=== PATIENT | male | born 1950 | race Caucasian/White ===

== ENCOUNTER → 2017-04-01 | Outpatient (REF) | payer OTHER | LOC: M LAB REF 09:04 | DX: C44.602 Unspecified malignant neoplasm of skin of right upper limb, including shoulder (principal) ==

== ENCOUNTER → 2018-12-19 | Outpatient (REF) | LOC: M LAB REF 14:28 | DX: C44.612 Basal cell carcinoma of skin of right upper limb, including shoulder (principal); C44.619 Basal cell carcinoma of skin of left upper limb, including shoulder ==

== ENCOUNTER → 2019-01-26 | Outpatient (REF) | payer OTHER | LOC: M LABCFH 09:57 | DX: D22.39 Melanocytic nevi of other parts of face (principal) ==

== ENCOUNTER → 2019-02-21 | Outpatient (REF) | LOC: M LABCFH 16:26 | DX: Z00.00 Encounter for general adult medical examination without abnormal findings (principal) ==

== ENCOUNTER → 2019-03-08 | Outpatient (REF) | payer OTHER | LOC: M LAB REF 14:04 | DX: C44.612 Basal cell carcinoma of skin of right upper limb, including shoulder (principal) ==

== ENCOUNTER → 2020-02-11 | Outpatient (REF) | payer MEDICARE | LOC: M LAB REF 08:16 | PROVIDERS: ATTEND Nurse Practitioner | DX: L60.3 Nail dystrophy (principal) ==

== ENCOUNTER → 2020-04-29 | Outpatient (REF) | payer MEDICARE, OTHER | LOC: M LAB REF 17:21 | PROVIDERS: ATTEND Dermatology | DX: D23.62 Other benign neoplasm of skin of left upper limb, including shoulder (principal) ==

== ENCOUNTER → 2022-11-17 | Outpatient (REF) | LOC: M SLEEP HO 10:00 | PROVIDERS: ATTEND Student in an Organized Health Care Education/Training Program | DX: G47.33 Obstructive sleep apnea (adult) (pediatric) (principal) ==

== ENCOUNTER 2023-10-13 08:23 | Day surgery (SDC) | payer OTHER ==
[~2023-10-13] VITALS: Ht 170.2 cm; Wt 63.8 kg
[~2023-10-13 08:23] MED LIST: ALTA1CAP4 PO; ATOR40TA75 PO; COLA100C5 PO; D 101000 PO; ECOT81TA5 PO; FAMO20TA PO; KP F1200 PO; META28PO PO; NORV5TAB PO; VIAG100T PO; VITA-243 PO
[2023-10-13] MEDS: NS 1,000 ML IV ONE (09:20)
[2023-10-13] MEDS ORDERED: propofoL 200 MG/20 ML VIAL As Ordered ONE (09:49)
[2023-10-13] MEDS ORDERED: LIDOCAINE 2% 100MG/5ML SDV (FOR ANES.) As Ordered ONE (09:49)
[2023-10-13 10:06] VITALS: TEMP 97.5
[2023-10-13 10:30] VITALS: BP 131/79; O2SAT 98
== END 2023-10-13 10:38 | disposition home or self-care (01) ==
LOC: M OPP 08:23
PROVIDERS: ATTEND Surgery
DX: Z12.11 Encounter for screening for malignant neoplasm of colon (principal); I10 Essential (primary) hypertension; Z95.5 Presence of coronary angioplasty implant and graft; Z86.74 Personal history of sudden cardiac arrest; Z79.02 Long term (current) use of antithrombotics/antiplatelets; Z79.1 Long term (current) use of non-steroidal anti-inflammatories (NSAID); Z79.82 Long term (current) use of aspirin; Z79.899 Other long term (current) drug therapy